=== PATIENT | male | born 1970 | race Caucasian/White ===

== ENCOUNTER → 2017-04-16 | Outpatient (CLI) | payer OTHER ==
--- NOTE | 2017-04-16 12:25 | DIAGNOSTIC IMAGING REPORT ---
CT OF THE RIGHT HAND WITHOUT CONTRAST CLINICAL HISTORY: Right hand pain. Evaluate right fifth carpometacarpal joint. COMPARISON STUDY: No previous studies for comparison. TECHNIQUE: Axial images of the right hand were obtained without IV contrast. Sagittal and coronal reconstructions were viewed. FINDINGS: Alignment of the right carpal bones is anatomic. There is no acute carpal bone fracture. There is no acute fracture the distal right radius or ulna. There is a displaced fracture of the lateral base of the right fifth metacarpal with an adjacent bone fragment that measures 1.1 x 0.6 cm. The fragment is displaced 8 mm. Intra-articular extension of fracture is noted. No additional fractures within the right hand are identified. Soft tissues are suboptimally assessed by CT. IMPRESSION: Displaced fracture of the lateral base of the right fifth metacarpal with intra-articular extension. Fracture is likely acute to subacute. A 1.1 x 0.6 cm bone fragment is displaced 8 mm. Electronically signed by: Neri Vance M.D. 04/16/2017 12:24 PM Dictated Date/Time: 04/16/2017 12:16 PM
== END | disposition home or self-care (01) ==
LOC: C.CTS 11:44
DX: S62.316A Displaced fracture of base of fifth metacarpal bone, right hand, initial encounter for closed fracture (principal); X58.XXXA Exposure to other specified factors, initial encounter